=== PATIENT | female | born 2005 ===

== ENCOUNTER 2024-01-30 19:34 | Emergency (ER) | payer MEDICAID, SELFPAY ==
[2024-01-30 19:37] VITALS: BP 156/84; PULSE 110; O2SAT 99
[2024-01-30 19:46] VITALS: BP 156/84; PULSE 140; O2SAT 99
--- NOTE | 2024-01-30 19:54 | ED_ITS ---
HPI - General Adult General Chief complaint: Anxiety Stated complaint: TOOK TOO MANY EDIBLES Related Data Allergies Allergy/AdvReac Type Severity Reaction Status Date / Time No Known Allergies Allergy Verified 01/30/24 19:57 [facility] Social History Social History Advance Directives: No Advance Directives Information Provided: No Do you have a plan to hurt others: No Plan Physical Exam ED Vital Signs: Vital Signs - 24 hr 01/30/24 19:55 01/30/24 21:49 Temperature 98.6 F 98.8 F Pulse Rate 105 H 81 Respiratory Rate 20 22 H Blood Pressure 129/75 115/43 L Pulse Oximetry 98 100 Oxygen Delivery Method Room Air Room Air BMI result Body Mass Index 25.7 Course Course Course Narrative: This is a Rapid Medical Examination (RME) performed by Francois Vazquez PA-C in triage. Full HPI, ROS, assessment and treatment plan per primary provider in the Main ED. 19 yo female hx of anxiety BIBA for eval for anxiety after consuming approx 15 units of edibles (3-4 gummies). admits to nausea w/o vomiting. patient states I feel like I'm . she reports feeling depressed. denies SI/HI. + patient tearful, HR noted to be in the 140's while in triage. patient stating she is extremely anxious. ekg ordered and discharge coordinator aware. Plan: labs, ekg, UDS Reevaluation(s) Reevaluation #1: Patient left the emergency department before myself or any of the other clinicians could review or explain physical exam findings, test results, need or lack there of for additional testing, treatment options, or a treatment plan. Medications Administered Discontinued Medications Generic Name Dose Route Start Last Admin Trade Name Edmond PRN Reason Stop Dose Admin Ondansetron HCl 4 mg 01/30/24 19:56 01/30/24 20:02 Ondansetron Odt 4 Mg Tab.Rapdis TRANSLINGU 01/30/24 19:57 4 mg ONCE ONE Administration Medical Decision Making Lab Data 01/30/24 20:45 01/30/24 20:44 Labs: Lab Results 01/30/24 01/30/24 Range/Units 20:44 20:45 WBC 8.2 (4.8-10.8) X10*3/uL RBC 4.23 (4.20-5.50) X10*6/uL Hgb 12.5 (12.0-16.0) g/dl Hct 36.8 L (37.0-47.0) % MCV 87.0 (80.0-98.0) fL MCH 29.6 (27.0-33.0) pg MCHC 34.0 (31.0-35.0) g/dl RDW 12.0 (11.0-16.0) % Plt Count 318 (160-400) X10*3/uL MPV 10.5 (9.4-12.3) fL Immature Gran % (Auto) 0.2 (0.0-0.4) % Neut % (Auto) 74.0 H (45-73) % Lymph % (Auto) 19.8 L (20-40) % Waldo % (Auto) 5.7 (2-11) % Eos % (Auto) 0.1 (0-4) % Baso % (Auto) 0.2 (0-2) % Lymph # (Auto) 1.6 (1.2-4.9) X10*3/uL Waldo # (Auto) 0.5 (0.1-1.2) X10*3/uL Eos # (Auto) 0.0 (0.0-0.4) X10*3/uL Baso # (Auto) 0.0 (0.0-0.2) X10*3/uL Abs Immat Gran (auto) 0.02 (0.00-0.03) X10*3/uL Absolute Neuts (auto) 6.1 (2.0-8.3) x10*3/uL Absolute Nucleated RBC 0.000 (0.0-0.012) X10*3/uL Nucleated RBC % (auto) 0.0 (0.0-0.2) /100WBC Sodium 135 (135-145) mmol/L Potassium 4.0 (3.3-5.1) mmol/L Chloride 104 (96-108) mmol/L Carbon Dioxide 22 (22-29) mmol/L Anion Gap 13 (12-20) BUN 9 (9-16) mg/dL Creatinine 0.77 (0.5-1.4) mg/dL Estim Creat Clear Calc 109.5 Estimated GFR > 60 Random Glucose 219 H (60-115) mg/dL Calcium 9.9 (8.4-10.2) mg/dL Magnesium 1.8 (1.6-2.6) mg/dL Total Bilirubin 2.0 H (0.0-1.0) mg/dL AST 14 (5-31) U/L ALT 7 (0-31) U/L Alkaline Phosphatase 49 (39-117) U/L Total Protein 7.5 (6.5-8.0) g/dL Albumin 4.3 (3.5-5.0) g/dL Discharge Plan Discharge Clinical Impression: Marijuana intoxication Patient Disposition: Left W/O Completing Treatment Discharge Date/Time: 01/31/24 00:15
[2024-01-30 19:55] VITALS: BP 129/75; PULSE 105; RESP 20; TEMP 37; O2SAT 98; BMI 25.7
--- NOTE | 2024-01-30 19:56 | ECG_ITS ---
Test Reason : INGESTED ? WEAKNESS Blood Pressure : / mmHG Vent. Rate : 086 BPM Atrial Rate : 086 BPM P-R Int : 116 ms QRS Dur : 080 ms QT Int : 356 ms P-R-T Axes : 044 059 030 degrees QTc Int : 426 ms Normal sinus rhythm with sinus arrhythmia Normal ECG No previous ECGs available Referred By: Anita Vazquez Electronically Signed By:CYN DEGROOT
[2024-01-30] MEDS: Ondansetron ODT 4 MG TAB.RAPDIS TRANSLINGU (20:02)
[2024-01-30 20:50] LABS: MANUAL DIFF FLAG NO
[2024-01-30 21:07] LABS: Basophils Percent Auto 0.2 % (0-2); Eosinophils Percent Auto 0.1 % (0-4); Hematocrit 36.8 % (37.0-47.0); Hemoglobin 12.5 g/dl (12.0-16.0); Imm Gran Abs Auto 0.02 X10*3/uL (0.00-0.03); Imm Gran Pct Auto 0.2 % (0.0-0.4); Lymphocytes Absolute Auto 1.6 X10*3/uL (1.2-4.9); Lymphocytes Percent Auto 19.8 % (20-40); Mean Corpuscular Hemoglobin 29.6 pg (27.0-33.0); Mean Platelet Volume 10.5 fL (9.4-12.3); Monocytes Absolute Auto 0.5 X10*3/uL (0.1-1.2); Monocytes Percent Auto 5.7 % (2-11); Neutrophils Absolute Auto 6.1 x10*3/uL (2.0-8.3); Platelet Count 318 X10*3/uL (160-400); Red Blood Count 4.23 X10*6/uL (4.20-5.50); White Blood Count 8.2 X10*3/uL (4.8-10.8)
[2024-01-30 21:16] LABS: Alanine Aminotransferase 7 U/L (0-31); Albumin Level 4.3 g/dL (3.5-5.0); Alkaline Phosphatase 49 U/L (39-117); Anion Gap 13 (12-20); Aspartate Amino Transferase 14 U/L (5-31); Blood Urea Nitrogen 9 mg/dL (9-16); Calcium 9.9 mg/dL (8.4-10.2); Carbon Dioxide 22 mmol/L (22-29); Chloride 104 mmol/L (96-108); Creatinine Clr Calc Pharmacy 109.5; Estimated Glomerular Filt Rate > 60; Glucose Random 219 mg/dL (60-115); Magnesium 1.8 mg/dL (1.6-2.6); Sodium 135 mmol/L (135-145); Total Protein 7.5 g/dL (6.5-8.0)
[2024-01-30 21:49] VITALS: BP 115/43; PULSE 81; RESP 22; TEMP 37.1; O2SAT 100
== END 2024-01-31 00:15 | disposition left against medical advice (07) ==
PROVIDERS: Physician Assistant Medical; Emergency Provider Emergency Medicine
DX: F12.920 Cannabis use, unspecified with intoxication, uncomplicated (principal); Z53.21 Procedure and treatment not carried out due to patient leaving prior to being seen by health care provider; F41.9 Anxiety disorder, unspecified; R11.0 Nausea; R53.1 Weakness; F32.A Depression, unspecified
CPT/HCPCS: 36415; 80053; 83735; 85025; 93005; 99281; 99283